=== PATIENT | male | born 1950 | race Caucasian/White ===

== ENCOUNTER → 2020-05-02 | Outpatient (CLI) | payer MEDICARE ==
[2020-05-02 09:53] LABS: ANION GAP 4 mmol/L (5-15); CALCIUM 9.9 mg/dL (8.5-10.1); CHLORIDE 107 mmol/L (98-107); CREATININE 1.46 mg/dL (0.7-1.3)
== END | disposition home or self-care (01) ==
LOC: STAR 09:27
PROVIDERS: ATTEND Anesthesiology
DX: Z01.818 Encounter for other preprocedural examination (principal); Z01.89 Encounter for other specified special examinations; R79.1 Abnormal coagulation profile
CPT/HCPCS: 36415; 80048; 93005

== ENCOUNTER → 2020-05-03 | Outpatient (CLI) | payer MEDICARE | END | disposition home or self-care (01) | LOC: LAB 13:44 | PROVIDERS: ATTEND Anesthesiology | DX: Z01.89 Encounter for other specified special examinations (principal); R79.1 Abnormal coagulation profile | CPT/HCPCS: 36415; 84132 ==

== ENCOUNTER 2020-06-07 12:59 | Outpatient (CLI) | payer MEDICARE | END 2020-06-07 23:59 | disposition home or self-care (01) | LOC: CARD 12:59 | PROVIDERS: ATTEND Surgery | DX: Z01.818 Encounter for other preprocedural examination (principal); C34.11 Malignant neoplasm of upper lobe, right bronchus or lung; C80.1 Malignant (primary) neoplasm, unspecified; G54.0 Brachial plexus disorders; J98.4 Other disorders of lung | CPT/HCPCS: 94060 ==